=== PATIENT | male | born 1990 | race Caucasian/White ===

== ENCOUNTER 2017-02-20 17:55 | Emergency (ER) | payer SELFPAY ==
[~2017-02-20] VITALS: Ht 172.7 cm; Wt 120.6 kg
[2017-02-20] MEDS ORDERED: OFLOXACIN EAR DROPS 0.3%, 5ML OTIC ONE (19:30)
[2017-02-20 19:34] VITALS: BP 145/90
== END 2017-02-20 19:37 | disposition home or self-care (01) ==
LOC: ED 19:35
DX: H60.91 Unspecified otitis externa, right ear (principal); H60.331 Swimmer's ear, right ear
CPT/HCPCS: 99283

== ENCOUNTER 2018-05-10 14:38 | Emergency (ER) | payer BC ==
[~2018-05-10] VITALS: Ht 172.7 cm; Wt 122.0 kg
[2018-05-10 14:55] VITALS: BP 124/81
== END 2018-05-10 15:30 | disposition home or self-care (01) ==
LOC: ED 15:15
DX: J30.2 Other seasonal allergic rhinitis (principal)
CPT/HCPCS: 99283